=== PATIENT | female | born 1970 | race African-American/Black ===

== ENCOUNTER 2016-04-19 23:52 | Emergency (ER) | payer OTHER ==
[~2016-04-19 23:52] MED LIST: ABILIFY5 MG PO; ACETAMINOPHEN650 M4 PO; AUGMENTIN875 M1 PO; CALCIUM ACETAT667 M1 PO; COREG6.25 MG PO; HYDRALAZINE HCL25 MG PO; HYDRALAZINE HCL50 MG PO; HYDROCODON-ACE1 EAC7 PO; LOPRESSOR PO; OMEPRAZOLE40 M1 PO; PROCRIT10000 U/ML IJ; PROTONIX PO; RENVELA800 MG PO; [UNRECOGNIZED DRUG - OTHER]
== END 2016-04-19 23:59 | disposition left against medical advice (07) ==
LOC: CED 23:52
DX: Z53.21 Procedure and treatment not carried out due to patient leaving prior to being seen by health care provider (principal)

== ENCOUNTER 2016-05-26 11:59 | Emergency (ER) | payer OTHER | END 2016-05-26 12:00 | disposition home or self-care (01) | LOC: CFTX 11:59 | DX: M79.662 Pain in left lower leg (principal); M79.661 Pain in right lower leg; I10 Essential (primary) hypertension; F32.9 Major depressive disorder, single episode, unspecified; Z99.2 Dependence on renal dialysis | CPT/HCPCS: 99283 ==